=== PATIENT | female | born 1955 | race Caucasian/White ===

== ENCOUNTER → 2017-01-02 | Outpatient (CLI) | payer OTHER ==
[~2017-01-02] MED LIST: ACET-2222 PO; ALBU8.5H2 IH; ALLEGRA; ALPR0.5T72 PO; AMLO5TAB2 PO; ASPI-624 PO; CARI250T PO; CLIN300C3 PO; CPR500T PO; FLT05NA16 NS; ONDA8TAB9 PO; TELM1TAB2 PO; TELM40T PO; TRM50T PO; [UNRECOGNIZED DRUG - CODE] PO
--- NOTE | 2017-01-08 08:48 | Diagnostic Imaging Report ---
Bilateral screening mammogram The current study was also evaluated with a Computer Aided Detection (CAD) system. INDICATION: Screening. No current complaints stated on the questionnaire. COMPARISON: 12/14/15. FINDINGS: The breasts are composed of heterogeneously dense parenchyma which may decrease mammographic sensitivity. There are benign-appearing calcifications seen. Allowing for technique and positional differences, no suspicious change is seen. IMPRESSION: Dense breasts with no definite change. ACR BI-RADS Category 2: Benign findings. Result letter will be mailed to the patient. Note: At least 10% of breast cancer is not imaged by mammography. Dictated by: Dictated on workstation # [id number]
== END ==
LOC: RAD 11:09
PROVIDERS: ATTEND Family Medicine
DX: Z12.31 Encounter for screening mammogram for malignant neoplasm of breast (principal)
CPT/HCPCS: 77067

== ENCOUNTER → 2017-12-09 | Outpatient (CLI) | payer SELFPAY ==
--- NOTE | 2017-12-09 13:10 | Diagnostic Imaging Report ---
INDICATION: 40 pack year history of smoking. COMPARISON: None. TECHNIQUE: Routine noncontrast low-dose CT of the chest was performed utilizing department screening protocol. FINDINGS: Evaluation of the lung logan demonstrates mild to moderate diffuse air trapping consistent with underlying emphysematous disease. There is no focal consolidation, pleural effusion, nor pneumothorax. Multiple parenchymal micronodules are identified and are as follows: * 3 mm micronodule is noted within the left apex (image 54, series 4). * 2 mm micronodule is also seen within the subpleural lateral margins slightly more inferiorly also within the left upper lobe (image 72, series 4). * Some irregular nodular and patchy densities are noted within the inferior margins of the lingula of the left upper lobe and may be on the basis of scarring and/or atelectasis. * A few less well-defined groundglass micronodular densities are also seen within the right upper lobe. These measure approximately 6 mm in diameter (image 35 and 41, series 4). * Spiculated micronodular density seen within the subpleural lateral margins of the right lower lobe slightly more inferiorly (image 87, series 4) and measured approximately 9 mm in diameter. Cardiomediastinal structures show normal heart size. There is no large pericardial effusion. No pathologically enlarged or morphologically abnormal adenopathy is identified within the mediastinum, fara, nor axilla. There is mild calcified coronary atherosclerosis. Bony structures show age-related degenerative changes of thoracic spine. No lytic or blastic bony lesions are seen. Included portions of the upper abdomen are unremarkable. IMPRESSION: 1. Multiple micronodular pulmonary parenchymal densities are identified bilaterally. Largest is within the right upper lobe and measures approximately 9 mm in diameter. Short interval three-month followup is recommended. 2. Background of mild to moderate emphysematous disease. 3. Mild calcified coronary atherosclerosis. LungRads category: 4A-S Modifiers: As above. Dictated by: Dictated on workstation # [id number]
== END ==
LOC: RAD 11:48
PROVIDERS: ATTEND Family Medicine
DX: R91.8 Other nonspecific abnormal finding of lung field (principal); R43.9 Unspecified disturbances of smell and taste; I25.10 Atherosclerotic heart disease of native coronary artery without angina pectoris

== ENCOUNTER → 2018-03-23 | Outpatient (CLI) | payer OTHER ==
--- NOTE | 2018-03-23 12:02 | Diagnostic Imaging Report ---
PROCEDURE: CT chest without contrast. TECHNIQUE: Multiple contiguous axial images were obtained through the chest without the use of intravenous contrast. INDICATION: Pulmonary nodules, largest in the right upper lobe 9 mm. COMPARISON: Study compared with previous 12/09/2017. FINDINGS: Largest nodule in the right upper lobe is decreased in size and density from prior. Today it measures 6.6 x 3.2 mm, previously 8.6 x 4.0 mm. Additional tiny micronodules in the pulmonary apices bilaterally showed a reduction in size and density and, where appreciable on followup, appeared virtually groundglass or sub-solid. Air trapping and COPD and changes of centrilobular emphysema, chronic finding. No adverse development. No new or suspect mass. No effusion or pneumothorax. IMPRESSION: Benign appearing micronodules have either resolved or decreased in size and density from prior with no adverse development with background sequelae of centrilobular emphysema. LungRads Category 2. 12 months low-dose CT followup recommended. Dictated by: Dictated on workstation # [id number]
== END ==
LOC: RAD 10:14
PROVIDERS: ATTEND Family Medicine
DX: R91.8 Other nonspecific abnormal finding of lung field (principal)
CPT/HCPCS: 71250

== ENCOUNTER 2022-09-09 08:00 | Day surgery (SDC) | payer MEDICARE, BC ==
[2022-09-09] VITALS (10 sets, daily range): BP systolic 116–137; BP diastolic 63–82
[~2022-09-09] VITALS: Ht 170.2 cm; Wt 52.6 kg
[2022-09-09 07:33] LABS: HEMATOCRIT 38 % (35-52); HEMOGLOBIN 12.3 g/dL (11.5-16.0); MEAN CORPUSCULAR HEMOGLOBIN 30 pg (25-34); MEAN CORPUSCULAR HGB CONC 33 g/dL (32-36); MEAN CORPUSCULAR VOLUME 94 fL (80-99); MEAN PLATELET VOLUME 10.6 fL (9.0-12.2); PLATELET COUNT 464 10^3/uL (130-400); WHITE BLOOD COUNT 6.2 10^3/uL (4.3-11.0)
[2022-09-09 07:48] LABS: PROTHROMBIN TIME PATIENT 13.5 SEC (12.2-14.7)
[2022-09-09 07:55] LABS: BILIRUBIN,TOTAL 0.5 MG/DL (0.1-1.0); CALCIUM 9.1 MG/DL (8.5-10.1); CREATININE SERUM 0.81 MG/DL (0.60-1.30); POTASSIUM 3.6 MMOL/L (3.6-5.0); TOTAL PROTEIN 6.6 GM/DL (6.4-8.2)
[~2022-09-09 08:00] MED LIST changes: +HEParin (CATH LAB) 2,000 ML IV ONE; +LIDOCAINE 1% INJ 30 ML (XYLOCAINE) VIAL ONE; +MIDAZOLAM 5 MG/5 ML (VERSED) VIAL ONE; +NS IV 1000 ML 1,000 ML IV SCH; +NS IV 1000 ML 1,000 ML ONE; +fentaNYL INJ 100 MCG/2 ML AMP ONE
[2022-09-09] MEDS ORDERED: SACC250C PO (08:23)
[2022-09-09] MEDS ORDERED: ESZO2TAB4 PO (08:23)
[2022-09-09] MEDS ORDERED: SIMV20TA26 PO (08:23)
[2022-09-09] MEDS ORDERED: ESTR0.62 PO (08:23)
[2022-09-09] MEDS ORDERED: MULT-1136 PO (08:23)
[2022-09-09] MEDS ORDERED: CLOB15CR3 TP (08:23)
[2022-09-09] MEDS ORDERED: RT-ALBUINH INH (08:23)
[2022-09-09] MEDS ORDERED: GBPN600T PO ×2 (08:23)
[2022-09-09] MEDS ORDERED: ALPR0.5T7 PO (08:23)
[2022-09-09] MEDS ORDERED: BENZ100C18 PO (08:23)
[2022-09-09] MEDS ORDERED: VITA100T8 PO (08:23)
[2022-09-09] MEDS ORDERED: ACET325T38 PO (08:23)
[2022-09-09] MEDS ORDERED: TELM40TA6 PO (08:23)
[2022-09-09] MEDS ORDERED: MONT10TA21 PO (08:23)
[2022-09-09] MEDS ORDERED: MAGN250T13 PO (08:23)
[2022-09-09] MEDS ORDERED: UBRO50TA PO (08:23)
[2022-09-09] MEDS ORDERED: PROM25TA14 PO (08:23)
[2022-09-09] MEDS ORDERED: PANT40TA2 PO (08:23)
[2022-09-09] MEDS ORDERED: ACET1TAB37 PO (08:23)
[2022-09-09] MEDS ORDERED: ASPI-1238 PO (08:23)
[2022-09-09] MEDS ORDERED: CHOL500044 PO (08:23)
[2022-09-09] MEDS ORDERED: MTP25TSR PO (08:23)
[2022-09-09] MEDS ORDERED: LORA-877 PO (08:23)
[2022-09-09] MEDS ORDERED: FLT22013 INH (08:23)
[2022-09-09] MEDS ORDERED: CYCL5TAB PO (08:34)
--- NOTE | 2022-09-09 09:26 | Cardiac Procedure Note-CS/ASA ---
Pre-Procedure Note Pre-Op Procedure Note Date of Available H&P: Sep 04, 2022 Date H&P Reviewed: Sep 09, 2022 Time H&P Reviewed: 08:25 History & Physical: H&P Reviewed, No changes noted Conscious Sedation Pre-Proced ASA Score 2 For ASA 3 and 4: Consider anesthesia and medical clearance. Also, for patients with a history of failed moderate sedation consider anesthesia. Airway Lungs Heart ASA score ASA 1: a normal healthy patient ASA 2: a patient with a mild systemic disease (mid diabetes, controlled hypertension, obesity ASA 3: a patient with a severe systemic disease that limits activity (angina, COPD, prior Myocardial infarction) ASA 4: a patient with an incapacitating disease that is a constant threat to life (CHF, renal failure) ASA 5: a moribund patient not expected to survive 24 hrs. (ruptured aneurysm) ASA 6: a declared brain- patient whose organs are being harvested. For emergent operations, add the letter E after the classification Mallampati Classification Grade 2 Sedation Plan Analgesia, Amnesia, Plan communicated to team members The patient is an appropriate candidate to undergo the planned procedure, sedation, and anesthesia. The patient immediately re-assessed prior to indication. MOHINDER LOPEZ MD FACP FAC CCDS Sep 09, 2022 09:26
[2022-09-09] MEDS ORDERED: PATIENT MAY USE OWN MEDS, ALL PO SCH (09:30)
[2022-09-09] MEDS ORDERED: NS IV 1000 ML 1,000 ML IV SCH (09:30)
[2022-09-09] MEDS ORDERED: ASPI-999 PO (09:35)
--- NOTE | 2022-09-09 09:36 | Discharge Inst-Post CATH ---
Discharge Inst-CATH/EP Post Cardiac Cath/EP D/C Inst Follow Up/Plan F/u with Dr Ford in one week ACTIVITY * Go Home directly and rest. * Limit activity of the leg (or wrist if it was used) for 7 days including aerobics, swimming, jogging, bicycling, etc. * Restrict stair-climbing for 7 days if possible, if not, climb up with your n on-cath leg, then bring together on the same step. * Avoid lifting, pushing, pulling or excessive movement of the affected ex tremity for 7 days. * Customary sexual activity may be resumed after 2 days-use caution not to use a position that strains or causes pain to the affected extremity. * No driving for 24 hours. * NO SMOKING. * Avoid straining for bowel movements for 7 days. * Gentle walking on level ground is allowed. * Returning to work will depend on the type of procedure and the results. Your doctor will discuss this with you. CALL YOUR DOCTOR FOR ANY OF THE FOLLOWING: *If bleeding from the puncture site occurs- Apply gentle pressure to site with clean cloth and call your doctor or EMS. * If a knot or lump forms under the skin, increases in size, or causes pain. * If bruising appears to be worsening or moving further down your leg instead of disappearing. * Temperature above 101 F. CARE OF YOUR GROIN INCISION; * Bruising or purple discoloration of the skin near the puncture site is common. * You may shower only, no bathtub bathing for 5 days. Be careful to avoid slipping as your leg may feel stiff. * If a closure device was used on your femoral artery, please see the attached guide regarding care of the device and your leg. * Leave dressing on FOR 24 hours. CARE OF YOUR WRIST INCISION; * Bruising or purple discoloration of the skin near the puncture site is common. * You may shower. * DO NOT submerge wrist. * Leave dressing on FOR 24 hours. MOHINDER FORD MD [facility] CCDS Sep 09, 2022 09:36
--- NOTE | 2022-09-09 09:36 | Discharge Inst-Cardiology ---
Discharge Inst-Cardiac Discharge Medications New Medications: Aspirin (Aspirin) 81 Mg Tab.chew 81 MG PO DAILY, #90 TAB 3 Refills Continued Medications: Acetaminophen (Tylenol) 325 Mg Tablet 650 MG PO Q6H PRN for PAIN-MILD (1-4), TAB Acetaminophen/Chlorpheniramine (Coricidin Hbp Cold & Flu Tab) 325 Mg-2 Mg Tablet 2 EACH PO Q4 -6H PRN for CONGESTION, TAB Albuterol Sulfate (Ventolin Hfa) 1 Puff Puff 2 PUFF INH Q4H PRN for SHORTNESS OF BREATH, EA Alprazolam (Alprazolam) 0.5 Mg Tablet 0.5-1 MG PO TID, TAB TAKES 1-2 TABLETS Benzonatate (Tessalon Perles) 100 Mg Capsule 100 MG PO TID PRN for COUGH, CAP Cholecalciferol (Vitamin D3) (Vitamin D3) 125 Mcg (5000 Unit) Tablet 125 MCG PO DAILY, TAB Clobetasol Propionate/Emoll (Clobetasol Emollient 0.05% Crm) 0.05 % Cream..g. 1 APPLIC TP DAILY PRN for ECZEMA, EA Cyclobenzaprine HCl (Cyclobenzaprine HCl) 5 Mg Tablet 5 MG PO Q8H PRN for MUSCLE CRAMPS, TAB Estrogens, Conjugated (Premarin) 0.625 Mg Tablet 0.625 MG PO DAILY, TAB Eszopiclone (Lunesta) 2 Mg Tablet 2 MG PO HS, TAB Fluticasone Propionate (Flovent Hfa 220 mcg) 220 Mcg Aero 2 PUFF INH BID, EA Gabapentin (Gabapentin) 600 Mg Tablet 600 MG PO 1600, TAB Gabapentin (Gabapentin) 600 Mg Tablet 600 MG PO HS PRN for MUSCLE SPASMS, TAB Loratadine/Pseudoephedrine (Claritin-D 24 Hour Tablet) 10 Mg-240 Mg Tab.er.24h 1 EACH PO DAILY, TAB Magnesium Oxide (Magnesium) 250 Mg Tablet 250 MG PO DAILY, TAB Metoprolol Succinate (Metoprolol Succinate) 25 Mg Tab.er.24h 25 MG PO DAILY, TAB Montelukast Sodium (Singulair) 10 Mg Tablet 10 MG PO HS, TAB Multivitamin (Multivitamin) 1 Each Tablet 1 EACH PO DAILY, TAB Pantoprazole Sodium (Protonix) 40 Mg Tablet.dr 40 MG PO DAILY, TAB Promethazine HCl (Promethazine Tablet) 25 Mg Tablet 25 MG PO Q6H PRN for NAUSEA/VOMITING-1ST LINE, TAB Saccharomyces Boulardii (Florastor) 250 Mg Capsule 250 MG PO DAILY, CAP Simvastatin (Simvastatin) 20 Mg Tablet 20 MG PO HS, TAB Telmisartan (Telmisartan) 40 Mg Tablet 40 MG PO DAILY, TAB Ubrogepant (Ubrelvy) 50 Mg Tablet 50 MG PO DAILY PRN for MIGRAINE, TAB Vitamin E Mixed (Vitamin E) 100 Unit Tablet 100 UNIT PO DAILY, TAB Discontinued Medications: Aspirin (Aspirin EC) 81 Mg Tablet.dr 81 MG PO DAILY, TAB MOHINDER LOPEZ MD FACP FAC CCDS Sep 09, 2022 09:36
--- NOTE | 2022-09-09 11:25 | CARDIAC CATHETERIZATION ---
DATE OF SERVICE: 09/09/2022 CARDIAC CATHETERIZATION REPORT The patient is a 66-year-old lady, who has multiple coronary artery disease risk factors and who has been experiencing chest discomfort that is suggestive of new onset of angina. Cardiac catheterization was carried out after having obtained an informed consent. DESCRIPTION OF PROCEDURE: She was brought to the cardiac catheterization laboratory in a fasting state. Right groin was prepared and draped in the usual sterile fashion. A 1% lidocaine used for local anesthesia. Modified Seldinger technique was used to advance a 5-Panamanian sheath in the right femoral artery. A 5-Panamanian JL4 catheter used for left coronary angiography. A 5-[place]amanian JR4 catheter used for right coronary angiography. A 5-Panamanian pigtail catheter was used for left heart catheterization and left ventricular coronary angiography. Angiography of the right femoral artery was carried out through the sheath at the end of the procedure. Manual pressure was used to achieve hemostasis following sheath removal. She tolerated the procedure well. HEMODYNAMICS: Left ventricular end diastolic pressure, following coronary angiography was 10 mmHg. There is no significant pressure gradient on pullback across the aortic valve. Ascending aortic pressure was 125/64 with a mean of 86 mmHg. CORONARY ANGIOGRAPHY: Left main coronary artery is free of significant disease. Left anterior descending artery is free of significant disease. Left circumflex artery is small, nondominant, and has 40% to 50% ostial stenosis. Right coronary artery is dominant. It has mild calcification in its proximal and mid portions. No significant obstructive coronary artery disease is seen. Right coronary artery is dominant. LEFT VENTRICULAR ANGIOGRAPHY: Left ventricular angiography was carried out of the right anterior oblique projection. Global left ventricular systolic function is normal. No regional wall motion abnormalities were seen. Left ventricular ejection fraction is approximately 60%. CONCLUSION: 1. Mild coronary artery disease consisting of 40% to 50% ostial stenosis with small caliber left circumflex artery and mild plaque of the right coronary artery and mild plaque of a dominant right coronary artery. 2. Normal global left ventricular systolic function, ejection fraction approximately 60%. 3. Normal left ventricular end-diastolic pressure. DISCUSSION AND RECOMMENDATIONS: Based on the results of the study, it appears appropriate to continue a conservative approach. Risk factor modification has been reviewed. Outpatient followup is advised. Job ID: [id number] DocumentID: [id number] Dictated Date: 09/09/2022 09:20:43 [employer] Date: 09/09/2022 11:23:00 Dictated By: MOHINDER LOPEZ MD; MA; FACP; FACC;
== END 2022-09-09 12:30 | disposition home or self-care (01) ==
LOC: CATH 08:00 → SDC 09:33 → CATH 12:30
PROVIDERS: ATTEND Internal Medicine Cardiovascular Disease
DX: I25.10 Atherosclerotic heart disease of native coronary artery without angina pectoris (principal); F17.210 Nicotine dependence, cigarettes, uncomplicated; I10 Essential (primary) hypertension; Z79.899 Other long term (current) drug therapy; J44.9 Chronic obstructive pulmonary disease, unspecified; E78.2 Mixed hyperlipidemia; Z82.49 Family history of ischemic heart disease and other diseases of the circulatory system
CPT/HCPCS: 80053; 80061; 85027; 85610; 85730; 87081; 93005; 93458; C1894; 36415

== ENCOUNTER → 2022-09-12 | Outpatient (CLI) | payer MEDICARE, BC ==
[~2022-09-12] MED LIST changes: +ACET1TAB37 PO; +ACET325T38 PO; +ALPR0.5T7 PO; +ASPI-1238 PO; +ASPI-999 PO; +BENZ100C18 PO; +CHOL500044 PO; +CLOB15CR3 TP; +CYCL5TAB PO; +ESTR0.62 PO; +ESZO2TAB4 PO; +FLT22013 INH; +GBPN600T PO; -HEParin (CATH LAB) 2,000 ML IV ONE; -LIDOCAINE 1% INJ 30 ML (XYLOCAINE) VIAL ONE; +LORA-877 PO; +MAGN250T13 PO; -MIDAZOLAM 5 MG/5 ML (VERSED) VIAL ONE; +MONT10TA21 PO; +MTP25TSR PO; +MULT-1136 PO; -NS IV 1000 ML 1,000 ML IV SCH; -NS IV 1000 ML 1,000 ML ONE; +PANT40TA2 PO; +PROM25TA14 PO; +RT-ALBUINH INH; +SACC250C PO; +SIMV20TA26 PO; +TELM40TA6 PO; +UBRO50TA PO; +VITA100T8 PO; -fentaNYL INJ 100 MCG/2 ML AMP ONE
== END ==
LOC: CARD 10:44
PROVIDERS: ATTEND Internal Medicine Cardiovascular Disease
DX: R06.09 Other forms of dyspnea (principal)
CPT/HCPCS: 93306